=== PATIENT | male | born 1995 | race Caucasian/White ===

== ENCOUNTER 2019-11-09 03:10 | Emergency (ER) | payer BC, SELFPAY ==
--- NOTE | ~2019-11-09 | XR_ITS ---
EXAMINATION: XR chest 2V DATE: 11/09/2019 03:59 INDICATION: Fever and shortness of breath. TECHNIQUE: Frontal and lateral views of the chest were obtained. COMPARISON: Chest 2 views 05/31/2013 FINDINGS: The chest demonstrates clear lungs without pneumonia, pleural effusion, or pneumothorax. Th e heart size is normal. IMPRESSION: 1. No acute cardiopulmonary disease. Reviewed, dictated and finalized at location A. 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
[2019-11-09 03:29] VITALS: BP 135/84; RESP 20; TEMP 37.3; O2SAT 100
[2019-11-09 03:41] VITALS: PULSE 124; RESP 17; O2SAT 100
--- NOTE | 2019-11-09 03:52 | ED.FEVER ---
HPI - Fever General Chief Complaint: Chest Pain Stated Complaint: sob chest pain Time Seen by Provider: 11/09/19 03:20 Source: patient Mode of arrival: ambulatory Limitations: no limitations History of Present Illness HPI Narrative: Patient is a 24-year-old male who presents to the emergency department with complaint of fever, chest pain, shortness of breath, myalgias, headache, and upper respiratory symptoms. Patient reports onset of symptoms at approximately 8 PM last night. Symptoms worsened prompting his ED visit. Patient is denying any nausea, vomiting, or diarrhea. Patient is on immunosuppressive therapy for Crohn's disease. MD elicited complaint: fever Pertinent past history: immunosuppression Context: on immunosuppressant(s) Associated symptoms: chills, myalgias, headache, nasal congestion, cough, chest pain, shortness of breath, extremity pain and sinus pain Related Data Allergies Allergy/AdvReac Type Severity Reaction Status Date / Time paroxetine [From Paxil] Allergy Anaphylaxis Verified 11/09/19 04:30 risperidone Allergy Anaphylaxis Verified 11/09/19 04:30 sertraline [From Zoloft] Allergy Anaphylaxis Verified 11/09/19 04:30 montelukast [From Singulair] AdvReac Agitated Verified 11/09/19 04:30 nortriptyline AdvReac Agitated Verified 11/09/19 04:30 Review of Systems Review of Systems: All systems reviewed & are unremarkable except as noted in HPI and below Constitutional: Constitutional: Reports body ache(s), Reports chills, Reports fatigue, Reports fever(s), Reports headache(s) and Reports weakness ENT: Reports post nasal drip and Reports sinus pressure Cardiovascular: Cardiovascular: Reports chest pain Respiratory: Respiratory: Reports cough and Reports dyspnea Gastrointestinal: Gastrointestinal: Denies diarrhea, Denies nausea and Denies vomiting PMF Past Medical History Medical History (Updated 11/09/19 @ 05:49 by Farida Zaman MD) Anemia Anxiety Crohn's disease Depression Earnest-Danlos syndrome GERD (gastroesophageal reflux disease) Primary sclerosing cholangitis Protein calorie malnutrition Raynaud's disease Vocal cord dysfunction Surgical History Surgical History (Updated 11/09/19 @ 04:03 by Farida Zaman MD) History of colonoscopy Social History Social History (Updated 11/09/19 @ 04:05 by Farida Zaman MD) Smoking status: Never smoker Comments PMD: Dr. [place] Gastroenterology: Dr. Glass at [facility] Exam Const: General: cooperative and alert Nutritional Appearance: thin Orientation/consciousness: patient oriented x3 Limitations: no limitations HENMT: Mouth: Yes lip normal and Yes moist mucous membranes Resp: Effort & Inspection: normal respiratory effort Auscultation: clear to auscultation bilaterally Cardio: Rate: tachycardic Rhythm: regular rhythm GI: GI Palp: Yes Soft to palpation and No Tenderness to palpation present (GI) Auscultation: normal bowel sounds Skin: General skin exam: normal color Neuro: General: patient oriented x3 Cognition (Neuro): normal cognition Speech: normal speech Extrem: General: normal to inspection, full ROM and no clubbing, cyanosis or edema Psych: Mental Status: mental status grossly normal Affect: Anxious affect present Attitude: cooperative Course SHUTTLE HAND/PA Physician Supervision Patient feeling better after IV fluids. Heart rate decreased from 120s to 110. Patient without any acute abnormalities aside from mild elevation of white blood cell count noted on tests. Discussed diagnosis of viral syndrome and advised importance of primary care follow-up for reevaluation. Patient to return to the emergency department if needed for any worsening symptoms or problems. Vital Signs Vital signs: Vital Signs Temperature 99.1 F 11/09/19 03:29 Respiratory Rate 20 11/09/19 03:29 Blood Pressure 135/84 11/09/19 03:29 Pulse Oximetry 100 11/09/19 03:29 Temperature 99.1 F 11/09/19 03:29
[2019-11-09 04:22] LABS: Basophils Absolute Auto 0.1 K/mm3 (0.0-0.1); Basophils Percent Auto 0.5 % (0.2-1.2); Eosinophils Absolute Auto 0.1 K/mm3 (0-0.3); Hematocrit 44.8 % (42.0-52.0); Hemoglobin 15.1 g/dL (14.0-18.0); Immature Granulocyte Absolute 0.04 K/mm3 (0.00-0.031); Immature Granulocyte Percent A 0.3 % (0-0.5); Lymphocytes Absolute Auto 1.71 K/mm3 (0.9-3.2); Lymphocytes Percent Auto 14.5 % (18.3-44.2); Mean Corpuscular HGB Conc 33.7 g/dl (32-36); Mean Corpuscular Hemoglobin 30.6 pg (26-34); Mean Corpuscular Volume 90.9 fl (80-100); Mean Platelet Volume 9.5 fl (7.4-10.4); Monocytes Absolute Auto 1.7 K/mm3 (0.1-0.6); Monocytes Percent Auto 14.3 % (2.6-8.5); Neutrophils Absolute Auto 8.2 K/mm3 (1.3-6.7); Neutrophils Percent Auto 69.4 % (45.5-73.1); Platelet Count Result 271 k/mm3 (150-375); Red Blood Count 4.93 M/mm3 (4.6-6.20); Red Cell Distribution Width 14.2 % (11.5-14.5); White Blood Count 11.8 K/mm3 (4.5-10.0)
[2019-11-09] MEDS: LACTATED RINGERS 1,000 ML 999 ML IV CONT (04:27)
[2019-11-09 04:32] LABS: Prothrombin Time 13.1 Seconds (11.1-14.7)
[2019-11-09 04:33] VITALS: PULSE 110
[2019-11-09 04:33] LABS: Partial Thromboplastin Time 34.3 SECONDS (22.3-36.8)
[2019-11-09 04:35] LABS: Lactic Acid Reflex 1.1 mmol/L (0.7-2.1)
[2019-11-09 04:37] LABS: Alanine Aminotransferase 20 U/L (4-50); Albumin Level 4.7 g/dL (3.5-5.1); Alkaline Phosphatase 80 U/L (38-126); Aspartate Amino Transferase 21 U/L (17-59); Bilirubin,Total 0.5 mg/dL (0.2-1.3); Blood Urea Nitrogen 14 mg/dL (9-20); CRP 1.2 mg/dL (<1.0); Calcium 9.5 mg/dL (8.4-10.2); Carbon Dioxide 25 mmol/L (22-30); Chloride 99 mmol/L (98-107); Estimated CRCL calculation 103 ml/min; Estimated Glomerular Filt Rate > 60; Glucose 93 mg/dL (75-110); Potassium 3.8 mmol/L (3.4-5.0); Sodium 138 mmol/L (137-145)
[2019-11-09 05:23] LABS: Add Urine Microscopic? YES; Amorphous Sediment Urine Few; Appearance Urine Clear (Clear); Bacteria Urine Trace /hpf; Bilirubin Urine Negative (Negative); Blood Urine Negative (Negative); Color Urine Yellow (Yellow); Glucose Urine UA Negative (Negative); Ketones Urine Trace mg/dL (Negative); Leukocyte Esterase Ur Negative LEU/UL (Negative); Nitrate Urine Negative (Negative); Protein Urine Negative (Negative); RBC Urine 0-2 /hpf (0-2); Urobilinogen Urine Negative mg/dL (<2.0); WBC Urine 0-3 /hpf
[2019-11-09 06:08] VITALS: BP 124/82; PULSE 114; RESP 18; TEMP 37.2; O2SAT 100
[2019-11-09 06:15] VITALS: BP 124/82; PULSE 114; RESP 18; O2SAT 100
== END 2019-11-09 06:10 | disposition home or self-care (01) ==
PROVIDERS: Emergency Provider Emergency Medicine; PCP Internal Medicine
DX: B34.9 Viral infection, unspecified (principal); Z86.2 Personal history of diseases of the blood and blood-forming organs and certain disorders involving the immune mechanism; K50.90 Crohn's disease, unspecified, without complications; Q79.60 Ehlers-Danlos syndrome, unspecified; K21.9 Gastro-esophageal reflux disease without esophagitis; I73.00 Raynaud's syndrome without gangrene; K83.01 Primary sclerosing cholangitis; E46 Unspecified protein-calorie malnutrition; Z68.1 Body mass index [BMI] 19.9 or less, adult
CPT/HCPCS: 36415; 71046; 80053; 81001; 83605; 85025; 85610; 85730; 86140; 87040; 87804; 96360; 99283; J7120

== ENCOUNTER 2020-11-26 09:08 | Emergency (ER) | payer BC, SELFPAY ==
--- NOTE | ~2020-11-26 | XR_ITS ---
EXAMINATION: XR chest 1V portable DATE: 11/26/2020 10:18 INDICATION: Fever. TECHNIQUE: A single frontal view of the chest was obtained. COMPARISON: Chest 2 views 11/09/2019, CT abdomen and pelvis 08/19/2018 FINDINGS: The chest demonstrates clear lungs without pneumonia, pleural effusion, or pneumothorax. Th e heart size is normal. IMPRESSION: 1. No acute cardiopulmonary disease. Reviewed, dictated and finalized at location A. 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
[2020-11-26 09:12] VITALS: BP 126/78; PULSE 118; RESP 20; TEMP 38.8; O2SAT 97
--- NOTE | 2020-11-26 09:19 | ED.FEVER ---
HPI - Fever General Chief Complaint: Fever Stated Complaint: FEVER Time Seen by Provider: 11/26/20 09:19 History of Present Illness HPI Narrative: Fever from 101-103 since about 2AM. This is associated with body aches and fatigue. He has some mild dysuria, but only while he had the fever. He had a colonoscopy 1 week ago. No cough congestion, SOB, abdominal pain, nausea, vomiting, diarrhea. Related Data Home Medications Medication Instructions Recorded Confirmed folic acid 1 mg tablet 1 mg PO DAILY 05/23/20 infliximab 100 mg intravenous IVPB 05/23/20 solution methotrexate sodium 25 mg/mL 25 mg IM ONCE 05/23/20 injection solution multivit-mins no.51-FA 100 mcg-vit PO 05/23/20 K 350 mcg-co Q10 5 mg chew tablet ondansetron 4 mg disintegrating 4 mg PO Q8H 05/23/20 tablet pantoprazole 40 mg tablet,delayed 40 mg PO QAM 05/23/20 release ursodiol 300 mg capsule 300 mg PO BID 05/23/20 budesonide PO 11/26/20 olanzapine mg 11/26/20 Allergies Allergy/AdvReac Type Severity Reaction Status Date / Time buspirone Allergy Unknown Aggressive Verified 11/26/20 09:12 behavior paroxetine [From Paxil] Allergy Anaphylaxis Verified 11/26/20 09:12 risperidone Allergy Anaphylaxis Verified 11/26/20 09:12 sertraline [From Zoloft] Allergy Anaphylaxis Verified 11/26/20 09:12 montelukast [From Singulair] AdvReac Agitated Verified 11/26/20 09:12 nortriptyline AdvReac Agitated Verified 11/26/20 09:12 Review of Systems Review of Systems: All systems reviewed & are unremarkable except as noted in HPI and below PMFSH Past Medical History Medical History (Updated 11/26/20 @ 14:00 by Andrew Orosco MD) Anemia Anxiety Crohn's disease Depression Earnest-Danlos syndrome GERD (gastroesophageal reflux disease) Primary sclerosing cholangitis Protein calorie malnutrition Raynaud's disease Vocal cord dysfunction Surgical History Surgical History History of colonoscopy Family History Family History Mother Family history of multiple sclerosis Hypertension Father Hypertension Cerebrovascular accident Sibling Patient's sister is in good health Social History Social History Smoking status: Never smoker Second hand tobacco smoke exposure: No Alcohol intake: never Gender identity (if verbalized by the patient): Male Exam Const: General: no acute distress and alert Nutritional Appearance: thin Orientation/consciousness: patient oriented x3 HENMT: Head: normal to inspection Ears: TM's normal bilaterally Throat: posterior oropharynx normal Neck: Neck: normal visual inspection and no lymphadenopathy Chest: Chest palpation & inspection: no tenderness Resp: Effort & Inspection: normal respiratory effort Auscultation: clear to auscultation bilaterally, no rales, no rhonchi and no wheezes Cardio: Jugular venous distension: no JVD Rate: regular rate Rhythm: regular rhythm Heart sounds: no murmurs GI: Inspection: non-distended GI Palp: Yes Soft to palpation and No Tenderness to palpation present (GI) Skin: General skin exam: normal color Neuro: General: patient oriented x3 and moves all extremities Speech: normal speech Extrem: General: no edema Psych: Appearance: well kempt Affect: normal affect Course Vital Signs Vital signs: Vital Signs Temperature 38.8 C H 11/26/20 09:12 Pulse Rate 118 H 11/26/20 09:12 Respiratory Rate 20 11/26/20 09:12 Blood Pressure 126/78 11/26/20 09:12 Pulse Oximetry 97 11/26/20 09:12 Temperature 36.9 C 11/26/20 10:10 Pulse Rate 107 H 11/26/20 11:31 Respiratory Rate 16 11/26/20 11:31 Blood Pressure 119/80 11/26/20 11:31 Pulse Oximetry 97 11/26/20 11:31 MDM - Fever MDM Narrative Medical decision making narrative: UA has some WBCs. Don't know
[2020-11-26] MEDS: SODIUM CHLORIDE 0.9% IV 1,000 ML 999 ML (09:40)
--- NOTE | 2020-11-26 09:41 | PC.NURSE ---
toribio from dr schaefer [facility] 1g ivp x1 ns 1l bolus x1
[2020-11-26 10:10] VITALS: TEMP 36.9
[2020-11-26 10:15] LABS: Basophils Absolute Auto 0.1 K/mm3 (0.0-0.1); Basophils Percent Auto 0.3 % (0.2-1.2); Hematocrit 44.7 % (42.0-52.0); Hemoglobin 14.8 g/dL (14.0-18.0); Immature Granulocyte Absolute 0.08 K/mm3 (0.00-0.031); Immature Granulocyte Percent A 0.5 % (0-0.5); Lymphocytes Absolute Auto 1.47 K/mm3 (0.9-3.2); Lymphocytes Percent Auto 8.6 % (18.3-44.2); Mean Corpuscular HGB Conc 33.1 g/dl (32-36); Mean Corpuscular Hemoglobin 29.7 pg (26-34); Mean Corpuscular Volume 89.8 fl (80-100); Mean Platelet Volume 9.6 fl (7.4-10.4); Monocytes Percent Auto 11.4 % (2.6-8.5); Neutrophils Absolute Auto 13.6 K/mm3 (1.3-6.7); Neutrophils Percent Auto 79.2 % (45.5-73.1); Platelet Count Result 252 k/mm3 (150-375); Red Blood Count 4.98 M/mm3 (4.6-6.20); Red Cell Distribution Width 13.9 % (11.5-14.5); White Blood Count 17.1 K/mm3 (4.5-10.0)
[2020-11-26 10:26] LABS: Lactic Acid Reflex 2.5 mmol/L (0.7-2.1)
[2020-11-26 10:27] LABS: Partial Thromboplastin Time 38.3 SECONDS (22.3-36.8); Prothrombin Time 14.2 Seconds (11.1-14.7)
[2020-11-26 11:31] VITALS: BP 119/80; PULSE 107; RESP 16; O2SAT 97
[2020-11-26 11:31] LABS: Alanine Aminotransferase 24 U/L (4-50); Albumin Level 4.6 g/dL (3.5-5.1); Alkaline Phosphatase 78 U/L (38-126); Anion Gap 12 mmol/L (8-16); Aspartate Amino Transferase 25 U/L (17-59); Bilirubin,Total 0.6 mg/dL (0.2-1.3); Blood Urea Nitrogen 13 mg/dL (9-20); Calcium 9.4 mg/dL (8.4-10.2); Carbon Dioxide 25 mmol/L (22-30); Chloride 102 mmol/L (98-107); Estimated CRCL calculation 78 ml/min; Estimated Glomerular Filt Rate > 60; Glucose 122 mg/dL (75-110); Sodium 139 mmol/L (137-145)
[2020-11-26 11:35] LABS: Add Urine Microscopic? YES; Appearance Urine Clear (Clear); Bacteria Urine Trace /hpf; Bilirubin Urine Negative (Negative); Blood Urine Negative (Negative); Color Urine Straw (Yellow); Glucose Urine UA Negative (Negative); Ketones Urine Negative (Negative); Leukocyte Esterase Ur Trace LEU/UL (Negative); Nitrate Urine Negative (Negative); Protein Urine Negative (Negative); RBC Urine 0-2 /hpf (0-2); Specific Grav Ur 1.009 (1.001-1.035); Urobilinogen Urine Negative mg/dL (<2.0)
[2020-11-26 11:45] LABS: CRP 13.3 mg/dL (<1.0); Potassium 3.6 mmol/L (3.4-5.0)
--- NOTE | 2020-11-26 12:15 | PC.NURSE ---
Spoke with mom on phone to give update
[2020-11-26 13:12] LABS: Reflex Lactic Acid Yes or No Add Lactic
--- NOTE | 2020-11-26 13:53 | PC.NURSE ---
Updated Janie (mom) on plan of care.
[2020-11-26 13:54] LABS: Lactic Acid 0.8 mmol/L (0.7-2.1)
[2020-11-26 17:59] LABS: SARS-CoV-2 RNA PCR Negative
== END 2020-11-26 16:05 | disposition home or self-care (01) ==
PROVIDERS: Emergency Provider Emergency Medicine; PCP Physician Assistant
DX: N39.0 Urinary tract infection, site not specified (principal); Z20.828 Contact with and (suspected) exposure to other viral communicable diseases; K50.90 Crohn's disease, unspecified, without complications; Z86.2 Personal history of diseases of the blood and blood-forming organs and certain disorders involving the immune mechanism; Q79.60 Ehlers-Danlos syndrome, unspecified; K21.9 Gastro-esophageal reflux disease without esophagitis; I73.00 Raynaud's syndrome without gangrene; K83.01 Primary sclerosing cholangitis
CPT/HCPCS: 36415; 71045; 80053; 81001; 83605; 85025; 85610; 85730; 86140; 87040; 87077; 87086; 87088; 87186; 87804; 96374; 99284; C9803; J0131; J7030; U0003; U0005

== ENCOUNTER → 2021-06-04 09:27 | Outpatient (CLI) | payer BC, SELFPAY ==
[2021-06-04 20:44] LABS: SARS-CoV-2 RNA PCR Positive
== END ==
PROVIDERS: PCP Physician Assistant; Visit Provider Physician Assistant
DX: U07.1 COVID-19 (principal)
CPT/HCPCS: C9803; U0003; U0005

== ENCOUNTER 2023-06-09 12:28 | Emergency (ER) | payer BC, SELFPAY ==
--- NOTE | 2023-06-09 12:30 | ED.URI ---
HPI - URI/Sore Throat General Chief Complaint: Upper Respiratory Infection Stated Complaint: FEVER/SORE THROAT/BODY ACHES Time Seen by Provider: 06/09/23 12:30 Source: patient Mode of arrival: ambulatory Limitations: no limitations History of Present Illness HPI Narrative: Tylor is a 28-year-old male patient presenting to the clinic today with complaints of fever, sore throat, and body aches X 3 days. He reports no known exposure to anyone with COVID, flu, or strep. He also reports some chest discomfort and shortness of breath. MD elicited complaint: fever, sore throat and nasal congestion Related Data Home Medications Medication Instructions Recorded Confirmed infliximab 100 mg intravenous IV 05/23/20 01/04/23 solution (Remicade) pantoprazole 40 mg tablet,delayed 40 mg PO QAM 05/23/20 01/04/23 release olanzapine 2.5 mg tablet mg 11/26/20 01/04/23 methylphenidate HCl 18 mg 18 mg PO QAM 10/05/21 01/04/23 tablet,extended release 24 hr (Concerta) trazodone 50 mg tablet mg 06/09/23 Allergies Allergy/AdvReac Type Severity Reaction Status Date / Time buspirone Allergy Unknown Aggressive Verified 06/09/23 12:48 behavior paroxetine [From Paxil] Allergy Anaphylaxis Verified 06/09/23 12:48 risperidone Allergy Anaphylaxis Verified 06/09/23 12:48 sertraline [From Zoloft] Allergy Anaphylaxis Verified 06/09/23 12:48 montelukast [From Singulair] AdvReac Agitated Verified 06/09/23 12:48 nortriptyline AdvReac Agitated Verified 06/09/23 12:48 Review of Systems Review of Systems: Pertinent positives per HPI. Patient denies any rash, headache, visual changes, dizziness, cough, palpitations, nausea, vomiting, diarrhea, constipation, abdominal pain, or any urinary issues. [facility] Past Medical History Medical History Anemia Anxiety Crohn's disease Depression Earnest-Danlos syndrome GERD (gastroesophageal reflux disease) Primary sclerosing cholangitis Protein calorie malnutrition Raynaud's disease Vocal cord dysfunction Surgical History Surgical History History of colonoscopy Family History Family History Mother Family history of multiple sclerosis Hypertension Father Hypertension Cerebrovascular accident Sibling Patient's sister is in good health Social History Social History Smoking status: Never smoker Second hand tobacco smoke exposure: No Alcohol intake: never Substance use: unknown Lack of Transportation: No Lack of Food: Never True Current Housing: I Have Housing Concerned About Future Housing: No Difficulty Paying Gas/Electric Bills: No Difficulty Paying for Meds: No Currently Unemployed: No Education: Grade School Difficulty w/ Childcare or Family Care: Decline to Answer Gender identity (if verbalized by the patient): Male Comments At the time of my signature, I reviewed and agree with the nursing past medical, surgical, social, and family history. There is no relevant family history pertinent to the patient complaint. Exam Narrative: General: Well-developed, well nourished, ill-appearing Head: Normocephalic, atraumatic Eyes: Pupils equally round and reactive to light bilaterally, EOM intact, sclera and conjunctive clear, no discharge, lids normal Ears: TMs intact and clear, ear canals clear, no drainage, grossly hearing normal. Nose: Nares patent, clear discharge, mild inflammation, no sinus tenderness. Mouth: Oral pharynx without lesions or masses, good dentition, MMM. Neck: Supple, trachea midline, no enlargement of anterior or posterior cervical nodes, no thyroid masses or goiter palpable. Cardio: Regular rate and rhythm, s1 and s2 normal, no murmur appreciated. Resp: Clear to auscultation bilaterally, no
[2023-06-09 12:46] VITALS: BP 105/75; PULSE 112; RESP 16; TEMP 38.8; O2SAT 100
== END 2023-06-09 13:20 | disposition home or self-care (01) ==
PROVIDERS: Emergency Provider Nurse Practitioner Family; PCP Physician Assistant
DX: U07.1 COVID-19 (principal); K50.90 Crohn's disease, unspecified, without complications; Q79.60 Ehlers-Danlos syndrome, unspecified; K21.9 Gastro-esophageal reflux disease without esophagitis; I73.00 Raynaud's syndrome without gangrene; F41.9 Anxiety disorder, unspecified; F32.A Depression, unspecified
CPT/HCPCS: 87426; 87880; 99213; C9803; G0463